=== PATIENT | female | born 1940 | race Caucasian/White ===

== ENCOUNTER 2024-06-05 20:10 | Emergency (ER) | payer OTHER ==
[2024-06-05] MEDS ORDERED: ACETAMINOPHEN 500 MG TAB ONE (20:39)
--- NOTE | 2024-06-05 21:01 | RAD REPORT ---
EXAMINATION: CT LUMBAR SPINE WITHOUT CONTRAST CLINICAL INDICATION: Female, 83 years old. PAIN TECHNIQUE: Axial CT images were obtained through the lumbar spine in soft tissue and bone windows wit hout intravenous contrast. Coronal and Sagittal reformatted images were created from the data set. One or more of the following dose reduction techniques were used: Automated exposure control, adjustm ent of the mA and/ or kV according to patient size, and/or iterative reconstruction. Unless otherwise specified, incidental findings do not require dedicated imaging follow-up. [id number]. COMPARISON: No prior exam. FINDINGS: For purposes of this dictation, it is assumed that there are 5 non rib-bearing lumbar type vertebrae, and the most caudal fully segmented lumbar vertebra is labeled L5. ALIGNMENT: The lumbar spine demonstrates normal alignment without scoliosis or spondylolisthesis. BONES: Acute compression fracture involving the anterior superior endplate of L2. There is less than 20% loss of height. Remote appearing L3 compression fracture. Remote appearing superior endplate deformity at T12. DISCS: Mild diffuse disc height loss. LEVELS: Multilevel degenerative disc disease with varying degrees of neural foraminal narrowing. Mild central spinal stenosis is present at multiple levels. No high-grade central spinal stenosis. SOFT TISSUE: No soft tissue abnormalities. IMPRESSION: Acute L2 compression fracture with less than 20% loss of height and no bony retropulsion. Remote T12 and L3 compression fractures.
--- NOTE | 2024-06-05 21:25 | ER ---
Nurse's Notes [facility] Name: Gloria Garza Age: 83 yrs Sex: Female : 1940 Arrival Date: 06/05/2024 Time: 20:10 Bed 26 Private MD: Diagnosis: L2 compression fracture without retropulsion;Fall Presentation: 06/05 20:13 Chief complaint: EMS states: toned out to [facility] for fall. Patient was sitting me1 down and missed the chair. c/o pain to left lower back. Coronavirus screen:. Coronavirus screen: Vaccine status:. Ebola Screen: No symptoms or risks identified at this time. Initial Sepsis Screen: Does the patient meet any 2 criteria? No. Patient's initial sepsis screen is negative. Does the patient have a suspected source of infection? No. Patient's initial sepsis screen is negative. Risk Assessment: Do you want to hurt yourself or someone else? Patient reports no desire to harm self or others. Onset of symptoms was June 05, 2024. 20:13 Method Of Arrival: [place] [facility] [place] Acuity: SHI 4 me1 Triage Assessment: 20:21 General: Appears uncomfortable, well groomed, well developed, well nourished, Behavior me1 is calm, cooperative, appropriate for age, Reports c/o pain to left lower back when sitting. No pain when lying still. Pain: Complains of pain in left low back Pain does not radiate. Pain currently is 1 out of 10 on a pain scale. at worst was 9 out of 10 on a pain scale. Quality of pain is described as sharp, Pain began suddenly. EENT: No signs and/or symptoms were reported regarding the EENT system. Neuro: Level of Consciousness is awake, alert, obeys commands, Oriented to person, situation. Cardiovascular: Patient's skin is warm and dry. Respiratory: Airway is patent Respiratory effort is even, unlabored, Respiratory pattern is regular, symmetrical. GI: No signs and/or symptoms were reported involving the gastrointestinal system. : No signs and/or symptoms were reported regarding the genitourinary system. Derm: Skin is intact, is healthy with good turgor, Skin is pink, warm \T\ dry. Musculoskeletal: Reports pain in left low back. Injury Description: fall from a sitting position. Historical: - Allergies: 20:20 Codeine; me1 - PMHx: 20:20 Alzheimer's disease; Hypertensive disorder; GERD; me1 20:21 Hypercholesterolemia; me1 - PSHx: 20:21 arthroplasty; me1 - Immunization history:: Adult Immunizations up to date. - Infectious Disease History:: Denies. - Social history:: Smoking status: Patient denies any tobacco usage or history of. Screenin:26 [facility] ED Fall Risk Assessment (Adult) History of falling in the last 3 months, me1 including since admission Yes- single mechanical fall (1 pt) Confusion or Disorientation Yes (5 pts) Intoxicated or Sedated No (0 pts) Impaired Gait No (0 pts) Mobility Assist Device Used No (0 pt) Altered Elimination No (0 pt) Score/Fall Risk Level 0 - 2 = Low Risk Maintained a safe environment, Provided non-skid footwear, Hourly rounding (assess needs \T\ fall precautionary measures) done. Abuse screen: Denies threats or abuse. Nutritional screening: No deficits noted. Tuberculosis screening: No symptoms or risk factors identified. Assessment: 20:26 General: See triage assessment. . Pain: Complains of pain in left low back Pain does me1 not radiate. Pain currently is 0 out of 10 on a pain scale. at worst was 9 out of 10 on a pain scale. Quality of pain is described as sharp, Pain began suddenly, Is episodic, Alleviated by rest, Aggravated by Sitting up. Neuro: Level of Consciousness is awake, alert, obeys commands, Oriented to person, place, time, situation, Appropriate for age. Cardiovascular: Patient's skin is warm and dry. Respiratory: Airway is patent Respiratory effort is even, unlabored, Respiratory pattern is regular, symmetrical. GI: No signs and/or symptoms were reported involving the gastrointestinal system. : No signs and/or symptoms were reported regarding the genitourinary system. EENT: No signs and/or symptoms were reported regarding the EENT system. Derm: Skin is intact, is healthy with good turgor, Skin is pink, warm \T\ dry. Musculoskeletal: Reports pain in left low back. Injury Description: trying to sit down in a chair and missed. c/o left lower back pain when sitting up. 21:30 General: Discharge delayed waiting on family to pick her up.. me1 Vital Signs: 20:13 BP 156 / 94; Pulse 68; Resp 16; Temp 98.3; Pulse Ox 97% ; Weight 61.96 kg; Height 5 ft. me1 7 in. ; Pain 9/10; 20:30 BP 163 / 94; Pulse 70; Resp 16; Pulse Ox 96% ; me1 21:30 BP 144 / 79; Pulse 72; Resp 16; Pulse Ox 95% ; me1 21:43 Pain 4/10; me1 20:13 Body Mass Index 21.39 (61.96 kg, 170.18 cm) me1 20:13 Pain Scale: Adult me1 21:43 Pain Scale: Adult me1 ED Course: 20:12 Patient arrived in ED. me1 20:14 Morris Ribera DO is Attending Physician. ms3 20:20 Triage completed. me1 20:21 Arm band placed on Patient placed in an exam room. me1 20:26 Patient has correct armband on for positive identification. Bed in low position. Call me1 light in reach. Side rails up X 1. Provided Education on: POC. Verbalized understanding. . Client placed on continuous cardiac and pulse oximetry monitoring. NIBP monitoring applied. Pulse ox on. NIBP on. 20:26 No provider procedures requiring assistance completed. Patient did not have IV access me1 during this emergency room visit. 20:38 Neva Zamudio, RN is Primary Nurse. me1 20:47 CT Lumbar Spine Wo Con In Process Unspecified. EDMS Administered Medications: 20:54 Drug: Acetaminophen PO 1000 mg PO once Route: PO; me1 21:43 Follow up: Pain 4/10 Adult; Response: No adverse reaction; Pain is decreased me1 Medication: 20:26 VIS not applicable for this client. me1 Outcome: 21:24 Discharge ordered by . ms3 22:07 Discharged to home via wheelchair, with family, me1 22:07 Condition: stable 22:07 Discharge instructions given to patient, family, Instructed on discharge instructions, follow up and referral plans. Demonstrated understanding of instructions, follow-up care, 22:07 Patient left the ED. me1 Signatures: Dispatcher [employer] EDMS Morris Ribera DO DO ms3 Neva Zamudio, RN RN me1
--- NOTE | 2024-06-05 21:25 | EDPHYS ---
Physician Documentation [facility] Name: Gloria Garza Age: 83 yrs Sex: Female : 1940 Arrival Date: 06/05/2024 Time: 20:10 Bed 26 Private MD: ED Physician Morris Ribera HPI: 06/05 23:01 This 83 yrs old Female presents to ER via EMS with complaints of Fall Injury. ms3 23:01 83-year-old female with past medical history of Alzheimer disease, hypertension, GERD, ms3 hypercholesterolemia presents to the emergency department status post fall. Patient states she was going to sit down when she missed the couch and sat onto the floor. Patient is complaining of left lower back pain. EMS notes patient was ambulatory on scene with assistance. Patient denies loss of consciousness, dizziness, taking blood thinners.. Historical: - Allergies: 20:20 Codeine; me1 - PMHx: 20:20 Alzheimer's disease; Hypertensive disorder; GERD; me1 20:21 Hypercholesterolemia; me1 - PSHx: 20:21 arthroplasty; me1 - Immunization history:: Adult Immunizations up to date. - Infectious Disease History:: Denies. - Social history:: Smoking status: Patient denies any tobacco usage or history of. ROS: 23:01 Constitutional: Negative for fever, and chills. Neck: Negative for injury, pain, and ms3 swelling, Cardiovascular: Negative for chest pain, and palpitations. Respiratory: Negative for shortness of breath, cough, wheezing, and pleuritic chest pain, Abdomen/GI: Negative for abdominal pain, nausea, vomiting, diarrhea, and constipation, 23:01 Skin: Negative for injury, rash, and discoloration, 23:01 Back: Positive for pain with movement, Exam: 23:01 Constitutional: This is a well developed, well nourished patient who is awake, alert, ms3 and in no acute distress. Head/Face: Normocephalic, atraumatic. Chest/axilla: Normal chest wall appearance and motion. Nontender with no deformity. Cardiovascular: Regular rate and rhythm with a normal S1 and S2. No gallops, murmurs, or rubs. Normal PMI, no JVD. No pulse deficits. Respiratory: Lungs have equal breath sounds bilaterally, clear to auscultation and percussion. No rales, rhonchi or wheezes noted. No increased work of breathing, no retractions or nasal flaring. Abdomen/GI: Soft, non-tender, with normal bowel sounds. No distension or tympany. No guarding or rebound. No evidence of tenderness throughout. 23:01 Back: pain, that is mild, of the left low back, ROM is painful, vertebral tenderness, Vital Signs: 20:13 BP 156 / 94; Pulse 68; Resp 16; Temp 98.3; Pulse Ox 97% ; Weight 61.96 kg; Height 5 ft. me1 7 in. ; Pain 9/10; 20:30 BP 163 / 94; Pulse 70; Resp 16; Pulse Ox 96% ; me1 21:30 BP 144 / 79; Pulse 72; Resp 16; Pulse Ox 95% ; me1 21:43 Pain 4/10; me1 20:13 Body Mass Index 21.39 (61.96 kg, 170.18 cm) me1 20:13 Pain Scale: Adult me1 21:43 Pain Scale: Adult me1 MDM: 20:34 Medical Screening Exam initiated ms3 23:01 Differential diagnosis: contusion, fracture, sprain, strain. Data reviewed: vital ms3 signs, nurses notes, radiologic studies, CT scan, and as a result, I will discharge patient. I considered the following discharge prescriptions or medication management in the emergency department Medications were administered in the Emergency Department. See MAR. Historians other than the Patient: EMS: [facility]. Care significantly affected by the following chronic conditions: Hypertension, Hyperlipidemia. Counseling: I had a detailed discussion with the patient and/or guardian regarding the historical points, exam findings, and any diagnostic results supporting the discharge/admit diagnosis, radiology results, the need for outpatient follow up, to return to the emergency department if symptoms worsen or persist or if there are any questions or concerns that arise at home. Special discussion: I discussed with the patient/guardian in detail that at this point there is no indication for admission to the hospital. It is understood, however, that if the symptoms persist or worsen the patient needs to return immediately for re-evaluation. ED course: Discussed obtaining CT head and C-spine with the patient on arrival. Patient declines CT head or neck. Patient is alert and oriented x 4. Discussed risk of possible missed diagnosis of intracranial hemorrhage versus subdural hemorrhage versus cervical vertebral fracture. Patient accepts risks. Discussed findings of 20% compression fracture without retropulsion with the patient. Patient given Dr. Albarran contact information to follow-up in 2 to 3 days. Patient understands and agrees with plan. All questions were answered. Return precautions discussed include worsening symptoms, or any other concerns.. 06/05 20:34 Order name: CT Lumbar Spine Wo Con; Complete Time: 21:19 ms3 Administered Medications: 20:54 Drug: Acetaminophen PO 1000 mg PO once Route: PO; me1 21:43 Follow up: Pain 11/24 Adult; Response: No adverse reaction; Pain is decreased me1 Disposition Summary: 06/05/24 21:24 Discharge Ordered Notes: Location: Home ms3 Condition: Stable ms3 Diagnosis - L2 compression fracture without retropulsion ms3 - Fall ms3 Followup: ms3 - With: Private Physician - When: 2 - 3 days - Reason: Recheck today's complaints Discharge Instructions: - Discharge Summary Sheet ms3 - Lumbar Spine Fracture ms3 Forms: - Medication Reconciliation Form ms3 - Antibiotic Education ms3 - Prescription Opioid Use ms3 - Patient Portal Instructions ms3 - Leadership Thank You Letter ms3 Signatures: Dispatcher [employer] Morris Ny DO DO ms3 Neva Zamudio, RN RN me1
[2024-06-06 03:41] VITALS: TEMP 98.3
[2024-06-06 03:43] VITALS: BP 144/79; O2SAT 95
== END 2024-06-05 22:07 | disposition home or self-care (01) ==
LOC: ER 20:10
DX: S32.020A Wedge compression fracture of second lumbar vertebra, initial encounter for closed fracture (principal); W18.30XA Fall on same level, unspecified, initial encounter; G30.9 Alzheimer's disease, unspecified; F02.80 Dementia in other diseases classified elsewhere, unspecified severity, without behavioral disturbance, psychotic disturbance, mood disturbance, and anxiety
CPT/HCPCS: 72131; 99284

== ENCOUNTER 2024-06-19 13:35 | Emergency (ER) | payer OTHER ==
[2024-06-19 14:16] LABS: Absolute Lymphocytes (CBC) 0.3 K/uL (0.7-4.9); Absolute Monocytes 0.2 K/uL (0.1-1.3); Absolute Neutrophil 7.7 K/uL (1.8-8.0); Basophils % 0.4 % (0-1.3); Eosinophils % 0.1 % (0-4.4); Hematocrit 36.1 % (36.0-45.0); Hemoglobin 11.6 g/dL (12.0-15.0); Lymphocytes % 3.7 % (15.3-44.8); MCH 30.1 pg (27.0-35.0); MCHC 32.1 g/dL (32.0-36.0); MCV 93.9 fL (80-100); MPV 8.8 fL (7.6-11.3); Monocytes % 2.3 % (3.3-12.3); Neutrophils % 93.5 % (41.7-73.7); Platelets 265 thou/uL (152-406); RBC Red Blood Cell Count 3.84 M/uL (3.86-4.86); Red Cell Distribution Width 16.4 % (12.1-15.2)
[2024-06-19 14:24] LABS: PT Prothrombin Time 12.2 SECONDS (9.4-12.5); Protime INR 1.09
[2024-06-19 14:41] LABS: ALT/SGPT 16 U/L (13-56); AST/SGOT 13 U/L (15-37); Albumin/Globulin Ratio 0.6 (1.1-1.8); Alkaline Phosphatase 99 U/L (45-117); Anion Gap 8.1 mEq/L (5.0-15.0); BUN Blood Urea Nitrogen 14 mg/dL (7-18); Bicarbonate 29 mEq/L (21-32); Bilirubin Total 0.5 mg/dL (0.2-1.0); Glomerular Filtration Rate 51 ml/min (=/>90); Glucose Level 127 mg/dL (74-106); Lipase 33 U/L (13-75); Magnesium 1.7 mg/dL (1.6-2.4); NT PRO-BNP 157 pg/mL (<450); Potassium 4.1 mEq/L (3.5-5.1); Sodium Level 139 mEq/L (136-145); Troponin High Sensitivity 9.1 pg/mL (<58.9)
[2024-06-19 14:44] LABS: Bilirubin Direct < 0.2 mg/dL (0-0.2); Bilirubin Indirect, Calculated 0.3 mg/dL (0.2-0.8)
--- NOTE | 2024-06-19 14:57 | RAD REPORT ---
EXAMINATION: CT ABDOMEN AND PELVIS WITHOUT CONTRAST CLINICAL INDICATION: Female, 83 years old.Abd pain;Constipation TECHNIQUE: CT abdomen and pelvis was performed, without IV contrast, as per department protocol. Axia l, sagittal and coronal reconstructions were obtained. One or more of the following dose reduction techniques were used: Automated exposure control, adjustment of the mA and/or kV according to the pat ient size, and/or iterative reconstruction. Unless otherwise specified, incidental findings do not require dedicated imaging follow-up. [id number]. IV CONTRAST: Not administered. COMPARISON: CT lumbar spine 06/05/2024 FINDINGS: The lack of intravenous contrast limits the sensitivity of this exam for evaluation of solid visceral organs, vascular structures, and retroperitoneum. LOWER CHEST: The visualized lung bases are clear. Bilateral breast prostheses. LIVER: Normal in size and contour. No focal lesion. GALLBLADDER/BILE DUCTS: No biliary ductal dilatation.? PANCREAS: No mass, ductal dilation, or asuncion-pancreatic fluid. SPLEEN: Normal size. No focal lesion. ADRENALS: Normal; no mass. KIDNEYS AND URETERS: Normal size and contour. No hydronephrosis. URINARY BLADDER: Normal contour. GASTROINTESTINAL TRACT: Stomach is non-dilated. Small bowel has normal course and caliber. No colonic wall thickening or pericolonic inflammatory changes. Large rectal stool burden. PERITONEUM: Mild presacral edema. ABDOMINAL AORTA AND OTHER VESSELS: Normal caliber aorta and IVC. Atherosclerosis. REPRODUCTIVE ORGANS: No pathologic process. MUSCULOSKELETAL: Subacute L2 compression fracture. Other remote compression fractures. ADDITIONAL FINDINGS: None. IMPRESSION: Large rectal stool burden could indicate fecal impaction.
--- NOTE | 2024-06-19 15:00 | RAD REPORT ---
EXAMINATION: ONE VIEW CHEST XR CLINICAL INDICATION: Female, 83 years old.weakness TECHNIQUE: 1 View, AP supine, X-ray of the chest was performed. [id number]. COMPARISON: No prior exam. FINDINGS: Lungs and pleura: Clear lungs. No effusion. Heart and mediastinum: Normal heart size. Unremarkable mediastinal contours. Osseous structures: No acute abnormality. Tubes/lines: None Other: None. IMPRESSION: No acute intrathoracic abnormality.
[2024-06-19 15:09] LABS: Specific Gravity 1.011 (1.005-1.030); Sqamous Epithelial <5 /HPF (None Seen); Urine Bacteria None Seen /HPF (<20); Urine Bilirubin NEGATIVE (Negative); Urine Blood Negative (Negative); Urine Clarity Clear (Clear); Urine Color Light-Yellow (Yellow); Urine Crystals Unidentified Few /HPF (None Seen); Urine Culture Reflex Order NOT NEEDED; Urine Glucose NEGATIVE (Negative); Urine Ketones TRACE (Negative); Urine Micro Reflex YN NO BILL MICROSCOPIC; Urine Mucus Slight /HPF (None Seen); Urine Nitrite NEGATIVE (Negative); Urine Protein NEGATIVE (Negative); Urine RBC <5 /HPF (None Seen); Urine Urobilinogen Normal (Normal); Urine WBC <5 /HPF (<5); Urine WBC Clump Rare /HPF (None Seen); Urine Yeast (Budding) Trace /HPF (None Seen); Urine pH 5.5 (5.0-7.0)
[2024-06-19] MEDS ORDERED: FLEET ENEMA ADULT PR ONE (15:25)
--- NOTE | 2024-06-19 16:30 | EDPHYS ---
Physician Documentation [facility] Name: Gloria Garza Age: 83 yrs Sex: Female : 1940 Arrival Date: 06/19/2024 Time: 13:35 Bed 18 Private MD: ED Physician Errol Culver HPI: 06/19 14:11 This 83 yrs old Female presents to ER via EMS with complaints of General Weakness \\T\\ sp3 constipation. 14:11 83-year-old female from [facility]] and with history of Alzheimer's, hyperlipidemia, sp3 hypertension, GERD presents with generalized weakness" my bowels are backed up". Unknown last bowel movement. Patient has no complaints of headache, fever, chest pain, shortness of breath or any other symptoms. Regardless of her all timers she is coherent and answering questions appropriately.. Historical: - Allergies: 14:10 Codeine; cm10 - PMHx: 14:10 Alzheimer's disease; GERD; Hypercholesterolemia; Hypertensive disorder; cm10 - PSHx: 14:10 arthroplasty; cm10 - Immunization history:: Adult Immunizations up to date. - Infectious Disease History:: Denies. - Social history:: Smoking status: unknown. ROS: 14:14 Constitutional: Negative for fever, chills, and weight loss, Eyes: Negative for injury, sp3 pain, redness, and discharge, Neck: Negative for injury, pain, and swelling, Cardiovascular: Negative for chest pain, palpitations, and edema, Respiratory: Negative for shortness of breath, cough, wheezing, and pleuritic chest pain, Back: Negative for injury and pain, MS/Extremity: Negative for injury and deformity, Skin: Negative for injury, rash, and discoloration, Neuro: Negative for headache, weakness, numbness, tingling, and seizure, Psych: Negative for depression, anxiety, suicide ideation, homicidal ideation, and hallucinations, Allergy/Immunology: Negative for hives, rash, and allergies, Endocrine: Negative for neck swelling, polydipsia, polyuria, polyphagia, and marked weight changes, Hematologic/Lymphatic: Negative for swollen nodes, abnormal bleeding, and unusual bruising, 14:14 All other systems are negative, Exam: 14:14 Constitutional: This is a well developed, well nourished patient who is awake, alert, sp3 and in no acute distress. Head/Face: Normocephalic, atraumatic. Eyes: Pupils equal round and reactive to light, extra-ocular motions intact. Lids and lashes normal. Conjunctiva and sclera are non-icteric and not injected. Cornea within normal limits. Periorbital areas with no swelling, redness, or edema. Neck: Trachea midline, no thyromegaly or masses palpated, and no cervical lymphadenopathy. Supple, full range of motion without nuchal rigidity, or vertebral point tenderness. No Meningismus. Chest/axilla: Normal chest wall appearance and motion. Nontender with no deformity. No lesions are appreciated. Cardiovascular: Regular rate and rhythm with a normal S1 and S2. No gallops, murmurs, or rubs. Normal PMI, no JVD. No pulse deficits. Respiratory: Lungs have equal breath sounds bilaterally, clear to auscultation and percussion. No rales, rhonchi or wheezes noted. No increased work of breathing, no retractions or nasal flaring. Abdomen/GI: Soft, non-tender, with normal bowel sounds. No distension or tympany. No guarding or rebound. No evidence of tenderness throughout. Back: No spinal tenderness. No costovertebral tenderness. Full range of motion. Skin: Warm, dry with normal turgor. Normal color with no rashes, no lesions, and no evidence of cellulitis. MS/ Extremity: Pulses equal, no cyanosis. Neurovascular intact. Full, normal range of motion. Neuro: Awake and alert, GCS 15, oriented to person, place, time, and situation. Cranial nerves II-XII grossly intact. Motor strength 5/5 in all extremities. Sensory grossly intact. Cerebellar exam normal. Normal gait. Psych: Awake, alert, with orientation to person, place and time. Behavior, mood, and affect are within normal limits. 14:14 Abdomen/GI: Abdomen is soft with no signs of obstruction, 14:59 ECG was reviewed by the Attending Physician. EKG demonstrates normal sinus rhythm at 75 sp3 bpm with right bundle branch block, occasional PVC and nonspecific diffuse ST/T changes without evidence of acute ischemia. Vital Signs: 14:10 BP 155 / 103; Pulse 85; Resp 19; Temp 97.9(O); Pulse Ox 100% on 2 lpm NC; Weight 65 kg; cm10 16:37 BP 194 / 92; Pulse 82; Resp 18; Pulse Ox 100% on R/A; cm10 16:44 BP 177 / 81; Pulse 65; Resp 18; Pulse Ox 100% on R/A; cm10 MDM: 13:46 Medical Screening Exam initiated sp3 14:14 Data reviewed: vital signs, nurses notes, lab test result(s), EKG, radiologic studies. sp3 ED course: This 83-year-old female with PMH above now with generalized weakness and constipation. Differential diagnosis includes constipation, ileus, SBO, electrolyte abnormality, and to lesser degree ACS, UTI, other abdominal infection, among others. Workup will include EKG, chest x-ray, labs, CT scan of the abdomen pelvis noncontrast, and general supportive care. Further pharmaceutical intervention as indicated. Final disposition pending workup and patient course.. 06/19 13:47 Order name: Basic Metabolic Panel; Complete Time: 15:04 sp3 06/19 13:47 Order name: CBC with Diff sp3 06/19 13:47 Order name: LFT's; Complete Time: 15:04 sp3 06/19 13:47 Order name: Magnesium; Complete Time: 15:04 sp3 06/19 13:47 Order name: NT PRO-BNP; Complete Time: 15:04 sp3 06/19 13:47 Order name: PT-INR; Complete Time: 15:04 sp3 06/19 13:47 Order name: Troponin HS; Complete Time: 15:04 sp3 06/19 13:47 Order name: Lipase; Complete Time: 15:04 sp3 06/19 13:47 Order name: UAM; Complete Time: 15:11 sp3 06/19 13:47 Order name: XRAY Chest (1 view); Complete Time: 15:04 sp3 06/19 13:47 Order name: CT Abd/Pelvis - Without Contrast; Complete Time: 15:04 sp3 06/19 13:47 Order name: Cardiac monitoring; Complete Time: 14:50 sp3 06/19 13:47 Order name: EKG - Nurse/Tech; Complete Time: 14:50 sp3 06/19 13:47 Order name: IV Saline Lock; Complete Time: 14:09 sp3 06/19 13:47 Order name: Labs collected and sent; Complete Time: 14:09 sp3 06/19 13:47 Order name: O2 Per Protocol; Complete Time: 14:10 sp3 06/19 13:47 Order name: O2 Sat Monitoring; Complete Time: 14:10 sp3 06/19 13:47 Order name: Cath: Cath UA if no sample in 20 minutes; Complete Time: 14:49 sp3 Administered Medications: 15:38 Drug: Bisacodyl MD Enema (10 mg/30mL) 10 mg MD once Route: MD; cm10 16:30 Follow up: Response: No adverse reaction cm10 Disposition Summary: 06/19/24 16:30 Discharge Ordered Notes: Location: Home sp3 Condition: Stable sp3 Diagnosis - Constipation, abdominal pain sp3 Followup: sp3 - With: Private Physician - When: Upon discharge from the Emergency Department - Reason: Continuance of care Discharge Instructions: - Discharge Summary Sheet sp3 Forms: - Medication Reconciliation Form sp3 - Antibiotic Education sp3 - Prescription Opioid Use sp3 - Patient Portal Instructions sp3 - Leadership Thank You Letter sp3 Prescriptions: - Colace 100 mg Oral Tablet - take 1 tablet ORAL route every 12 hours; 14 tablet; Refills: 0, Product sp3 Selection Permitted Signatures: Dispatcher [employer] EDMS Errol Culver MD MD sp3 Lila Bazzi RN RN cm10 Corrections: (The following items were deleted from the chart) 13:48 13:48 BASIC METABOLIC PANEL+C.LAB.BRZ ordered. EDMS EDMS 13:48 13:48 CBC+H.LAB.BRZ ordered. EDMS EDMS 13:48 13:48 HEPATIC FUNCTION+C.LAB.BRZ ordered. EDMS EDMS 13:48 13:48 MAGNESIUM+C.LAB.BRZ ordered. EDMS EDMS 13:48 13:48 PROBNP+C.LAB.BRZ ordered. EDMS EDMS 13:48 13:48 PROTIME (+INR)+COAG.LAB.BRZ ordered. EDMS EDMS 13:48 13:48 Troponin High Sensitivity+C.LAB.BRZ ordered. EDMS EDMS 13:48 13:48 LIPASE+C.LAB.BRZ ordered. EDMS EDMS 13:48 13:48 Urinalysis W/Microscopic+U.LAB.BRZ ordered. EDMS EDMS 13:48 13:48 Chest Single View+RAD.RAD.BRZ ordered. EDMS EDMS 13:48 13:48 Abdomen Pelvis Wo Con+CT.RAD.BRZ ordered. EDMS EDMS
--- NOTE | 2024-06-19 16:30 | ER ---
Nurse's Notes [facility] Name: Gloria Garza Age: 83 yrs Sex: Female : 1940 Arrival Date: 06/19/2024 Time: 13:35 Bed 18 Private MD: Diagnosis: Constipation, abdominal pain Presentation: 06/19 13:41 Chief complaint: EMS states: Called to [facility] due to patient being combative this cm10 morning, pale, more weak, and decreased appetite. Coronavirus screen: Client denies travel out of the [place] in the last 14 days. Ebola Screen: Patient denies travel to an Ebola-affected area in the 21 days before illness onset. No symptoms or risks identified at this time. Initial Sepsis Screen: Does the patient meet any 2 criteria? No. Patient's initial sepsis screen is negative. Does the patient have a suspected source of infection? No. Patient's initial sepsis screen is negative. Risk Assessment: Do you want to hurt yourself or someone else? Patient reports no desire to harm self or others. Onset of symptoms was June 19, 2024. Care prior to arrival: Medication(s) given: Normal saline infusion, 100mL IV initiated. 18 GA, in the right antecubital area, Glucose check: 188 Oxygen administered. via nasal cannula. 13:41 Method Of Arrival: EMS: [facility] 14:10 Acuity: SHI 3 cm10 Triage Assessment: 14:11 General: Appears in no apparent distress. uncomfortable, Behavior is calm, cooperative, cm10 appropriate for age. Pain: Complains of pain in Rectum. Neuro: No deficits noted. Level of Consciousness is awake, alert, obeys commands, Oriented to person, place, time, situation, Appropriate for age. Respiratory: No deficits noted. Airway is patent Respiratory effort is even, unlabored, Respiratory pattern is regular, symmetrical, Breath sounds are clear bilaterally. Historical: - Allergies: 14:10 Codeine; cm10 - PMHx: 14:10 Alzheimer's disease; GERD; Hypercholesterolemia; Hypertensive disorder; cm10 - PSHx: 14:10 arthroplasty; cm10 - Immunization history:: Adult Immunizations up to date. - Infectious Disease History:: Denies. - Social history:: Smoking status: unknown. Screenin:10 [facility] ED Fall Risk Assessment (Adult) History of falling in the last 3 months, cm10 including since admission Yes- single mechanical fall (1 pt) Confusion or Disorientation No (0 pts) Intoxicated or Sedated No (0 pts) Impaired Gait Yes (1 pt) Mobility Assist Device Used Yes (1 pt) Altered Elimination No (0 pt) Score/Fall Risk Level 3 or more points = High Risk Oriented to surroundings, Maintained a safe environment, Hourly rounding (assess needs \T\ fall precautionary measures) done. Abuse screen: Denies threats or abuse. Denies injuries from another. Nutritional screening: No deficits noted. Tuberculosis screening: No symptoms or risk factors identified. Assessment: 15:06 Reassessment: Patient appears in no apparent distress at this time. No changes from cm10 previously documented assessment. Patient and/or family updated on plan of care and expected duration. Pain level reassessed. Patient is alert, oriented x 3, equal unlabored respirations, skin warm/dry/pink. 15:07 General: Pt cleaned at this time. Pt noted to have a BM.. cm10 16:20 Reassessment: Pt noted to have a BM and states that she feels better. cm10 Vital Signs: 14:10 BP 155 / 103; Pulse 85; Resp 19; Temp 97.9(O); Pulse Ox 100% on 2 lpm NC; Weight 65 kg; cm10 16:37 BP 194 / 92; Pulse 82; Resp 18; Pulse Ox 100% on R/A; cm10 16:44 BP 177 / 81; Pulse 65; Resp 18; Pulse Ox 100% on R/A; cm10 ED Course: 13:40 Patient arrived in ED. cm10 13:41 Errol Culver MD is Attending Physician. sp3 14:10 Lipase Sent. cm10 14:10 Basic Metabolic Panel Sent. cm10 14:10 CBC with Diff Sent. cm10 14:10 LFT's Sent. cm10 14:10 Magnesium Sent. cm10 14:10 NT PRO-BNP Sent. cm10 14:10 PT-INR Sent. cm10 14:10 Troponin HS Sent. cm10 14:10 Initial lab(s) drawn, by me, sent to lab. Maintain EMS IV. Dressing intact. Good blood cm10 return noted. Site clean \T\ dry. Gauge \T\ site: 18g Right AC. Flushed with 10 mL NS. 14:10 Patient has correct armband on for positive identification. Bed in low position. Call cm10 light in reach. Side rails up X2. Provided Education on: ER process and procedures.. Client placed on continuous cardiac and pulse oximetry monitoring. NIBP monitoring applied. personnel monitor on. 14:11 Triage completed. cm10 14:11 Lila Bazzi, RN is Primary Nurse. cm10 14:11 Arm band placed on Patient placed in an exam room, on a stretcher. cm10 14:34 CT Abd/Pelvis - Without Contrast In Process Unspecified. EDMS 14:47 XRAY Chest (1 view) In Process Unspecified. EDMS 14:50 EKG done, by ED staff, reviewed by Errol Culver MD. cm10 15:05 Straight cath inserted, using sterile technique, 14 Fr. Specimen obtained. Returned cm10 clear yellow urine. 16:59 No provider procedures requiring assistance completed. IV discontinued, intact, cm10 bleeding controlled, No redness/swelling at site. Pressure dressing applied. Administered Medications: 15:38 Drug: Bisacodyl AR Enema (10 mg/30mL) 10 mg AR once Route: AR; cm10 16:30 Follow up: Response: No adverse reaction cm10 Medication: 14:10 VIS not applicable for this client. cm10 Outcome: 16:30 Discharge ordered by MD. [email or web address] 16:59 Discharged to home via wheelchair, with family, cm10 16:59 Condition: good 16:59 Discharge instructions given to family, Instructed on discharge instructions, follow up and referral plans. medication usage, Demonstrated understanding of instructions, follow-up care, medications, Prescriptions given X 1, 16:59 Patient left the ED. cm10 Signatures: Dispatcher [employer] Errol Drew MD MD sp3 Lila Bazzi, RN RN cm10
[2024-06-19 17:15] LABS: Platelet Estimate ADEQ; White Blood Cell Scan OK (OK)
[2024-06-19 17:16] LABS: Blood Morphology Comment NOT SEEN (NOT SEEN)
[2024-06-19 17:19] VITALS: TEMP 97.9; O2SAT 100
[2024-06-19 17:21] VITALS: BP 177/81
--- NOTE | 2024-06-20 12:14 | EKG ---
Test Date: 2024-06-19 Test Time: 14:46:34 Registration Specialist: KIMBERLY MEASUREMENT RESULTS: Intervals: Rate: 75 PA: 150 QRSD: 124 QT: 408 QTc: 455 [place]: P: 79 PA: 150 QRS: -52 T: 62 INTERPRETIVE STATEMENTS: Sinus rhythm with occasional premature ventricular complexes Left axis deviation Right bundle branch block Abnormal ECG No previous ECG available for comparison Electronically Signed On 06-20-24 12:12:59 IMPREGNATING TANK OPERATOR by Shankar Smith
== END 2024-06-19 16:59 | disposition home or self-care (01) ==
LOC: ER 13:35
DX: K59.00 Constipation, unspecified (principal); R10.9 Unspecified abdominal pain; R53.1 Weakness; I10 Essential (primary) hypertension; G30.9 Alzheimer's disease, unspecified; F02.80 Dementia in other diseases classified elsewhere, unspecified severity, without behavioral disturbance, psychotic disturbance, mood disturbance, and anxiety
CPT/HCPCS: 36415; 51702; 71045; 74176; 80048; 80076; 81001; 83690; 83735; 83880; 84484; 85025; 85610; 93005; 99285

== ENCOUNTER 2025-06-06 11:58 | Emergency (ER) | payer OTHER ==
[2025-06-06 13:05] LABS: PT Prothrombin Time 12.9 SECONDS (10-13.0); PTT, Activated Partial Thromb 25.3 SECONDS (27.2-37.4); Protime INR 1.15
[2025-06-06 13:06] LABS: Absolute Lymphocytes (CBC) 0.3 K/uL (0.7-4.9); Hematocrit 42.8 % (36.0-45.0); Hemoglobin 13.9 g/dL (12.0-15.0); MCH 31.9 pg (27.0-35.0); MCHC 32.4 g/dL (32.0-36.0); MCV 98.4 fL (80-100); MPV 9.4 fL (7.6-11.3); Nucleated RBC Absolute Count 0.0 (0-0); Nucleated Red Blood Cells % 0.0 % (0-0); RBC Red Blood Cell Count 4.35 M/uL (3.86-4.86); White Blood Count 5.60 thou/uL (4.3-10.9)
[2025-06-06 13:27] LABS: ALT/SGPT 21 U/L (13-56); AST/SGOT 15 U/L (15-37); Albumin 3.5 g/dL (3.4-5.0); Albumin/Globulin Ratio 0.7 (1.1-1.8); Alkaline Phosphatase 70 U/L (45-117); Anion Gap 7.7 mEq/L (5.0-15.0); BUN Blood Urea Nitrogen 19 mg/dL (7-18); Bilirubin Indirect, Calculated 0.7 mg/dL (0.2-0.8); Globulin 5.2 g/dL (2.3-3.5); Glucose Level 99 mg/dL (74-106); Potassium 3.7 mEq/L (3.5-5.1)
--- NOTE | 2025-06-06 13:33 | RAD REPORT ---
EXAMINATION: Head C Spine Mpr Wo Con CLINICAL INDICATION: Female, 84 years old. CONFUSED TECHNIQUE: Axial CT images from the skull base to the vertex without intravenous contrast. Axial CT i mages through the cervical spine were obtained without intravenous contrast. Sagittal and coronal reformatted images were created from the data set. Coronal and sagittal reformatted images were creat ed from the data set. One or more of the following dose reduction techniques were used: Automated exposure control, adjustment of the mA and/or kV according to patient size, and/or iterative reconstr uction. Unless otherwise specified, incidental findings do not require dedicated imaging follow-up. [id number]. COMPARISON: No prior exams FINDINGS: Head: INTRACRANIAL: No acute intracranial hemorrhage. No acute large vascular territory infarct. No hydro cephalus. No mass effect or midline shift. Mild chronic small vessel ischemic changes. Moderate cerebral atrophy. VASCULATURE: No visualized abnormalities in the arteries or dural venous sinuses. SCALP/SKULL: No calvarial fracture identified. No acute soft tissue abnormality. SINUSES: Scattered areas of paranasal sinus thickening. No significant mastoid fluid. Cervical spine: ALIGNMENT: The cervical spine has normal alignment without scoliosis or spondylolisthesis. BONE: Vertebral body heights are maintained. No aggressive osseous lesions. DEGENERATIVE: Multilevel cervical spondylosis with evidence of bilateral neural foraminal narrowing. No high grade central spinal stenosis. SOFT TISSUE: No significant abnormalities in the soft tissue of the neck. The visualized lung apices are clear. IMPRESSION: No acute intracranial abnormality. No acute fracture or traumatic malalignment of the cervical spine.
[2025-06-06 14:29] LABS: Sqamous Epithelial <5 /HPF (None Seen); Urine Crystals Unidentified Few /HPF (None Seen); Urine Culture Reflex Order NOT NEEDED; Urine Microscopic Reflex YN ORDER UMIC; Urine WBC Clump Rare /HPF (None Seen); Urine Yeast (Budding) Trace /HPF (None Seen)
[2025-06-06 14:33] LABS: METHAMPHETAM NEGATIVE (NEGATIVE); THC Cannibis NEGATIVE (NEGATIVE)
--- NOTE | 2025-06-06 14:35 | ER ---
Nurse's Notes [facility] Name: Gloria Garza Age: 84 yrs Sex: Female : 1940 Arrival Date: 06/06/2025 Time: 11:58 Bed 18 Private MD: Diagnosis: Fall on same level, unspecified Presentation: 06/06 12:05 Chief complaint: EMS states: [facility] coming from [facility] had a fall from bed last rg5 night around 1am, no LOC, she was able to get back to her bed. This morning they notice that the patient had some confusion and not on her baseline. 12:05 Coronavirus screen: Client denies travel out of the [place] in the last 14 days. Ebola rg5 Screen: Patient negative for fever greater than or equal to 101.5 degrees Fahrenheit, and additional compatible Ebola Virus Disease symptoms Patient denies exposure to infectious person. Patient denies travel to an Ebola-affected area in the 21 days before illness onset. Initial Sepsis Screen: Does the patient meet any 2 criteria? No. Patient's initial sepsis screen is negative. Does the patient have a suspected source of infection? No. Patient's initial sepsis screen is negative. Risk Assessment: Do you want to hurt yourself or someone else? Patient reports no desire to harm self or others. Onset of symptoms was June 06, 2025. Care prior to arrival: IV initiated. 22 GA, in the right antecubital area, Glucose check: 93. Activity prior to arrival: fall. Mechanism of Injury: Fall out of bed. 12:05 Method Of Arrival: EMS: [facility] rg5 12:05 Acuity: SHI 3 rg5 Triage Assessment: 12:17 General: Appears in no apparent distress. comfortable, Behavior is calm, cooperative, rg5 appropriate for age. Pain: Denies pain. EENT: No signs and/or symptoms were reported regarding the EENT system. Neuro: Level of Consciousness is awake, alert, obeys commands. Cardiovascular: Patient's skin is warm and dry. Respiratory: Airway is patent Trachea midline Respiratory effort is even, unlabored. GI: Abdomen is round. : Derm: Skin is intact, Skin is dry, Skin is normal, Skin temperature is warm. Musculoskeletal: Circulation, motion, and sensation intact. Range of motion: intact in all extremities. Historical: - Allergies: 12:17 Codeine; rg5 - PMHx: 12:17 Alzheimer's disease; GERD; Hypercholesterolemia; Hypertensive disorder; rg5 - PSHx: 12:17 arthroplasty; rg5 - Immunization history:: Adult Immunizations unknown. - Infectious Disease History:: Denies. - Social history:: Smoking status: unknown. Screenin:20 [facility] ED Fall Risk Assessment (Adult) History of falling in the last 3 months, rg5 including since admission Yes- single mechanical fall (1 pt) Confusion or Disorientation Yes (5 pts) Intoxicated or Sedated No (0 pts) Impaired Gait Yes (1 pt) Mobility Assist Device Used No (0 pt) Altered Elimination Yes (1 pt) Score/Fall Risk Level 3 or more points = High Risk Oriented to surroundings, Maintained a safe environment, Provided non-skid footwear, Hourly rounding (assess needs \T\ fall precautionary measures) done. Abuse screen: Denies threats or abuse. Nutritional screening: On. Tuberculosis screening: No symptoms or risk factors identified. Assessment: 12:20 Reassessment: No changes from previously documented assessment. General: Appears in no rg5 apparent distress. Behavior is calm, cooperative, appropriate for age. Respiratory: Airway is patent Respiratory effort is even, unlabored. 13:29 Reassessment: No changes from previously documented assessment. Patient and/or family rg5 updated on plan of care and expected duration. Pain level reassessed. Patient is alert, oriented x 3, equal unlabored respirations, skin warm/dry/pink. 14:34 Reassessment: No changes from previously documented assessment. Patient and/or family rg5 updated on plan of care and expected duration. Pain level reassessed. Patient is alert, oriented x 3, equal unlabored respirations, skin warm/dry/pink. Vital Signs: 12:17 BP 185 / 95; Pulse 86; Resp 19; Temp 98.4; Pulse Ox 97% on R/A; Weight 58.97 kg; Height rg5 5 ft. 8 in. ; Pain 0/10; 12:30 BP 147 / 79; Pulse 83; Resp 18; Pulse Ox 95% ; rg5 13:28 BP 150 / 85; Pulse 76; Resp 18; Pulse Ox 100% ; rg5 14:30 BP 167 / 94; Pulse 98; Resp 17; Pulse Ox 100% ; Pain 0/10; rg5 12:17 Body Mass Index 19.77 (58.97 kg, 172.72 cm) rg5 12:17 Pain Scale: Adult rg5 14:30 Pain Scale: Adult rg5 ED Course: 12:05 Patient arrived in ED. im 12:10 Arm band placed on Patient placed in an exam room, on a stretcher. ll1 12:11 Memo Winchester, RN is Primary Nurse. rg5 12:17 Triage completed. rg5 12:20 Patient has correct armband on for positive identification. Bed in low position. Call rg5 light in reach. Side rails up X 1. Client placed on continuous cardiac and pulse oximetry monitoring. NIBP monitoring applied. light oil operator on. Pulse ox on. NIBP on. Door closed. Noise minimized. 12:20 No provider procedures requiring assistance completed. Maintain EMS IV. Dressing rg5 intact. Good blood return noted. Site clean \T\ dry. Gauge \T\ site: 20g right AC. Flushed with 10 mL NS. Patient maintains SpO2 saturation greater than 95% on room air. 12:26 Aurelia Eubanks PA-C is PHCP. sb4 12:26 Morris Ribera DO is Attending Physician. sb4 12:48 Head C Spine MPR Wo Con CT In Process Unspecified. EDMS 15:07 IV discontinued, bleeding controlled, No redness/swelling at site. Pressure dressing rg5 applied. Administered Medications: No medications were administered Medication: 12:20 VIS not applicable for this client. rg5 Outcome: 14:35 Discharge ordered by . sb4 15:07 Discharged to home via wheelchair, rg5 15:07 Condition: stable 15:07 Discharge instructions given to patient, family, Instructed on discharge instructions, follow up and referral plans. Demonstrated understanding of instructions, follow-up care, 15:08 Patient left the ED. rg5 Signatures: Dispatcher [employer] EDMS Bernard Betancourt RN RN ll1 Aurelia Eubanks PA-C PA-C sb4 Lisa Montes Memo Winchester, MEGAN RN rg5
--- NOTE | 2025-06-06 14:35 | EDPHYS ---
Physician Documentation [facility] Name: Gloria Garza Age: 84 yrs Sex: Female : 1940 Arrival Date: 06/06/2025 Time: 11:58 Bed 18 Private MD: ED Physician Morris Ribera HPI: 06/06 15:18 This 84 yrs old Female presents to ER via EMS with complaints of Altered Mental Status, sb4 Fall Injury. 15:52 retirement reports that patient had a fall out of bed this morning and ever since, sb4 she has been more confused than her baseline. Patient has no complaints at this time. Historical: - Allergies: 12:17 Codeine; rg5 - PMHx: 12:17 Alzheimer's disease; GERD; Hypercholesterolemia; Hypertensive disorder; rg5 - PSHx: 12:17 arthroplasty; rg5 - Immunization history:: Adult Immunizations unknown. - Infectious Disease History:: Denies. - Social history:: Smoking status: unknown. ROS: 15:52 Constitutional: Negative for fever, chills, and weight loss, sb4 15:52 All other systems are negative, Exam: 15:52 Head/Face: Normocephalic, atraumatic. Eyes: Extra-ocular motions intact. Periorbital sb4 areas with no swelling, redness, or edema. ENT: Mucous membranes moist. Cardiovascular: Regular rate and rhythm with a normal S1 and S2. Respiratory: No increased work of breathing, no retractions or nasal flaring. Abdomen/GI: Soft, non-tender, no distension. Skin: Warm, dry with normal turgor. Normal color with no rashes, no lesions, and no evidence of cellulitis. 15:52 Constitutional: The patient appears in no acute distress, alert, awake, Vital Signs: 12:17 BP 185 / 95; Pulse 86; Resp 19; Temp 98.4; Pulse Ox 97% on R/A; Weight 58.97 kg; Height rg5 5 ft. 8 in. ; Pain 0/10; 12:30 BP 147 / 79; Pulse 83; Resp 18; Pulse Ox 95% ; rg5 13:28 BP 150 / 85; Pulse 76; Resp 18; Pulse Ox 100% ; rg5 14:30 BP 167 / 94; Pulse 98; Resp 17; Pulse Ox 100% ; Pain 0/10; rg5 12:17 Body Mass Index 19.77 (58.97 kg, 172.72 cm) rg5 12:17 Pain Scale: Adult rg5 14:30 Pain Scale: Adult rg5 MDM: 12:26 Medical Screening Exam initiated sb4 15:53 Differential Diagnosis: electrolyte abnormality, intracranial bleed, UTI, volume sb4 depletion. Data reviewed: vital signs, nurses notes, EMS record, [facility] records, lab test result(s), EKG, radiologic studies, and as a result, I will discharge patient. Historians other than the Patient: Daughter/Son: daughter. Care significantly affected by the following chronic conditions: Hypertension. Counseling: I had a detailed discussion with the patient and/or guardian regarding the historical points, exam findings, and any diagnostic results supporting the discharge/admit diagnosis, the presence of at least one elevated blood pressure reading (>120/80) during this emergency department visit, lab results, radiology results, the need for outpatient follow up, for definitive care, to return to the emergency department if symptoms worsen or persist or if there are any questions or concerns that arise at home. 06/06 12:26 Order name: Acetaminophen; Complete Time: 13:32 sb4 06/06 12:26 Order name: Basic Metabolic Panel; Complete Time: 13:32 sb4 06/06 12:26 Order name: CBC with Diff sb4 06/06 12:26 Order name: ETOH Level; Complete Time: 13:22 sb4 06/06 12:26 Order name: Hepatic Function; Complete Time: 13:32 sb4 06/06 12:26 Order name: PT-INR; Complete Time: 13:09 sb4 06/06 12:26 Order name: Ptt, Activated; Complete Time: 13:09 sb4 06/06 12:26 Order name: Salicylate; Complete Time: 13:32 sb4 06/06 12:26 Order name: Urine Drug Screen; Complete Time: 14:35 sb4 06/06 12:26 Order name: UA Rfx Mark Cult if indicated; Complete Time: 14:29 sb4 06/06 13:14 Order name: CBC Smear Scan EDMS 06/06 12:26 Order name: Head C Spine MPR Wo Con CT; Complete Time: 13:34 sb4 06/06 12:26 Order name: EKG - Nurse/Tech; Complete Time: 12:55 sb4 06/06 12:26 Order name: IV Saline Lock; Complete Time: 12:55 sb4 06/06 12: Order name: Labs collected and sent; Complete Time: : sb4 EC:13 Rate is 88 beats/min. Rhythm is regular, Sinus arrythmia with Occasional PVCs, Right sb4 bundle branch block. Left axis deviation noted. MS interval is normal at 184 msec. QRS interval is normal at 112 msec. QT interval is normal at 386 msec. No Q waves. T waves are Normal. No ST changes noted. Clinical impression: No evidence of ischemia. Interpreted by me. Reviewed by me. Administered Medications: No medications were administered Disposition: 15:23 I was immediately available on-site in the Emergency Department for consultation in the ms3 care of the patient. Disposition Summary: 06/06/25 14:35 Discharge Ordered Notes: Location: Home sb4 Problem: new sb4 Symptoms: have improved sb4 Condition: Stable sb4 Diagnosis - Fall on same level, unspecified sb4 Followup: sb4 - With: Emergency Department - When: As needed - Reason: Trouble breathing, Worsening of condition Discharge Instructions: - Discharge Summary Sheet sb4 - Fall Prevention in the Home, Adult, [id number] sb4 Forms: - Patient Portal Instructions sb4 - Leadership Thank You Letter sb4 Signatures: Dispatcher [employer] EDMorris Nunes DO DO ms3 Aurelia Eubanks PA-C PA-C sb4 Memo Winchester RN RN rg5 Corrections: (The following items were deleted from the chart) 12: 12:27 ACETAMINOPHEN+C.LAB.BRZ ordered. EDMS EDMS 12: 12:27 BASIC METABOLIC PANEL+C.LAB.BRZ ordered. EDMS EDMS 12: 12:27 CBC+H.LAB.BRZ ordered. EDMS EDMS 12:27 12:27 ETHANOL+C.LAB.BRZ ordered. EDMS EDMS 12:27 12:27 HEPATIC FUNCTION+C.LAB.BRZ ordered. EDMS EDMS 12:27 12:27 PROTIME (+INR)+COAG.LAB.BRZ ordered. EDMS EDMS 12:27 12:27 PTT, ACTIVATED+COAG.LAB.BRZ ordered. EDMS EDMS 12:27 12:27 SALICYLATE+C.LAB.BRZ ordered. EDMS EDMS 12: URINE DRUG SCREEN+UC.LAB.BRZ ordered. EDMS EDMS 12: UA Rfx Mark Cult if indicated+U.LAB.BRZ ordered. EDMS EDMS
[2025-06-06 15:21] LABS: Blood Morphology Comment NOT SEEN (NOT SEEN); White Blood Cell Scan OK (OK)
[2025-06-06 19:44] VITALS: TEMP 98.4
[2025-06-06 19:46] VITALS: O2SAT 100
[2025-06-06 19:47] VITALS: BP 167/94
== END 2025-06-06 15:08 | disposition home or self-care (01) ==
LOC: ER 11:58
DX: R41.82 Altered mental status, unspecified (principal); W06.XXXA Fall from bed, initial encounter
CPT/HCPCS: 36415; 70450; 72125; 80048; 80076; 80143; 80179; 80307; 81001; 82077; 85025; 85610; 85730; 93005; 99284